=== PATIENT | male | born 1950 | race Caucasian/White ===

== ENCOUNTER 2021-04-19 10:44 | Outpatient (CLI) | payer MEDICARE, SELFPAY ==
--- NOTE | ~2021-04-19 | US_ITS ---
EXAMINATION: US aorta [facility] DATE: 04/19/2021 11:31 INDICATION: Cardiovascular risk factors of hypercholesterolemia, hypertension and prior smoking. TECHNIQUE: Grayscale, color Doppler, and pulsed Doppler images of the aorta and common iliac arteries were obtained. COMPARISON: None. FINDINGS: The proximal aorta measures 2.4 cm. The mid aorta measures 1.7 cm. The distal aorta measures 1.7 cm. The right common iliac artery measures 1.2 cm. The left common iliac artery measures 1.2 cm. IMPRESSION: 1. Normal caliber abdominal aorta. Reviewed, dictated and finalized at location [facility]
== END 2021-04-19 10:45 | disposition home or self-care (01) ==
PROVIDERS: PCP Family Medicine; Visit Provider Nurse Practitioner Family
DX: Z87.891 Personal history of nicotine dependence (principal)
CPT/HCPCS: 76706

== ENCOUNTER 2024-12-23 02:01 | Day surgery (SDC) | payer MEDICARE, SELFPAY ==
[2024-12-08 12:47] VITALS: BMI 28.0
--- OUTSIDE RECORDS SUMMARY | 2024-12-23 02:03 | XMS_ITS | Clinical Summary ---
Author Organization [facility] Address [address] [place], [place] [id number] Care Team Providers Care Mobile Engineer Name Role Phone Gisel Boyle MD Primary Care Provider Allergies No known active allergies Medications No known medications Active Problems No known active problems Social History Tobacco Use Types Packs/Day Years Used Date Smoking Tobacco: Never Assessed Personal Safety Answer Date Recorded Getting School Help Needed Not on file 04/04 Sex and Gender Information Value Date Recorded Sex Assigned at Not on file Legal Sex Male 9:43 AM [employer]ING [employer] Gender Identity Not on file Sexual Orientation Not on file Plan of Treatment Not on file Insurance [facility] Address: [facility] [address] [place] [address] Care Teams Mobile Engineer Relationship Specialty Start Date End Date Gisel Boyle MD PCP - General Family Medicine 01/22/19
[2024-12-23 09:11] VITALS: BP 150/71; PULSE 68; RESP 18; TEMP 36.6; O2SAT 100
[2024-12-23] MEDS: LACTATED RINGERS 1,000 ML 150 ML IV CONT (09:20)
--- NOTE | 2024-12-23 09:52 | WPDANESEPPF ---
Anes - Initial Pre Proc Eval Procedure: Operation Date: 12/23/24 10:30 Proposed Procedures p Screening Colonoscopy - Ronak Sung MD Date/Time: 12/23/24 09:52 Surgeon: Ronak Sung MD Pre Op Diagnosis: Family history of colon polyps, unspecified Patient Data Age: 74 Gender: M Height: 1.75 m Weight: 80.6 kg Last Vital Signs Temp 97.8 F 12/23/24 09:11 Pulse 68 12/23/24 09:11 Resp 18 12/23/24 09:11 BP 150/71 H 12/23/24 09:11 Pulse Ox 100 12/23/24 09:11 O2 Del Method Room Air 12/23/24 09:11 Allergies Allergy/AdvReac Type Severity Reaction Status Date / Time No Known Allergies Allergy Unknown Verified 12/23/24 09:09 Home Medications ?Medication ?Instructions ?Recorded ?Confirmed ?Type ferrous sulfate 27 mg iron tablet 27 mg PO DAILY 03/12/19 12/23/24 History (High Potency Iron) multivit with minerals-iron 18 1 tablet PO DAILY 03/12/19 12/23/24 History mg-folic ac 400 mcg-vit K 25 mcg tablet (Adults Multivitamin) fluticasone propionate 50 1 spray intranasal DAILY #47.4 mL 04/10/19 12/23/24 Rx mcg/actuation nasal spray,suspension tamsulosin 0.4 mg capsule 0.4 mg PO DAILY #90 caps 07/07/24 12/23/24 Rx trazodone 50 mg tablet See Rx Instructions .Route 07/17/24 12/23/24 Rx .COMPLEX #90 tabs fenofibrate 160 mg tablet 160 mg PO DAILY #90 tabs 10/10/24 12/23/24 Rx amlodipine 5 mg tablet 5 mg PO DAILY #90 tabs 10/29/24 12/23/24 Rx lisinopril 40 mg tablet 40 mg PO DAILY #90 tabs 10/30/24 12/23/24 Rx rosuvastatin 10 mg tablet 10 mg PO DAILY #90 tabs 10/30/24 12/23/24 Rx triamterene 37.5 See Rx Instructions .Route 10/30/24 12/23/24 Rx mg-hydrochlorothiazide 25 mg .COMPLEX #90 caps capsule potassium chloride 10 mEq 10 meq PO DAILY #90 caps 12/22/24 12/23/24 Rx capsule,extended release Patient hx anesthesia problems: none Family hx anesthesia problems: none Results Review: All pre-operative results and documents have been reviewed as part of the pre-operative evaluation. [facility] Past Medical History Medical History Prediabetes Former smoker Meniere's disease Hyperlipidemia Insomnia Onychomycosis of great toe Erectile dysfunction BPH (benign prostatic hyperplasia) History of basal cell cancer Inner ear hearing loss Hypertension Hyperlipidemia Surgical History Surgical History Uses cochlear implant left ear Family History Family History Mother Cerebrovascular accident Father Cancer Social History Social History Social History: , 3 children, 7 grandchildren. He is retired from , he worked in the [employer]. Smoking packs per day: 0.5 Smoking cigarettes per day: 10.0 Years smoked: 5 Smoking pack-years: 2.50 Smoking status: Former smoker Tobacco type: cigarettes Second hand tobacco smoke exposure: No Alcohol intake: current Substance use: never Substance use type: does not use Lack of Transportation: No Lack of Food: Never True Current Housing: I Have Housing Concerned About Future Housing: No Difficulty Paying Gas/Electric Bills: No Difficulty Paying for Meds: No Currently Unemployed: No Education: Bachelor's Degree Difficulty w/ Childcare or Family Care: No Living arrangements: with family Occupation/Education: retired Gender identity (if verbalized by the patient): Male Sexual Orientation (if Verbalized by the Patient): Straight or Heterosexual Spiritual care concerns: No Agree to blood products: Yes Anes - Eval Final PreProcedure Day of Procedure 12/23/24 09:52 Patient weight: overweight Lungs: normal air movement Airway: Mallampati scale class II Neurological: alert and oriented Last oral intake: >/= 8 hours ASA classification: II Emergent: no Anesthetic plan: proceed Anesthesia type and monitoring: general GIVS and standard monitoring Results Review: All pre-operative results and documents have been reviewed as part of the pre-operative evaluation. HTN, hyperlipidemia, cochlear implant on L. Active without cp or sob. Informed Consent: The patient's anesthetic plan and its attendant risks and benefits were discussed with the patient/family/POA. Questions were solicited and answers provided to the satisfaction of the patient/family/POA.
--- NOTE | 2024-12-23 10:06 | PM.IMHP ---
H&P: HPI History of Present Illness Date/Time: 12/23/24 10:06 Chief Complaint: Family history of colon polyps Narrative: This patient has family history of colorectal polyps.. His son had polyps when he was 28. The patient's last colonoscopy was in 2019, finding no polyps. Review of Systems Review of Systems: All systems reviewed & are unremarkable except as noted in HPI and below PMFSH Past Medical History Medical History Prediabetes Former smoker Meniere's disease Hyperlipidemia Insomnia Onychomycosis of great toe Erectile dysfunction BPH (benign prostatic hyperplasia) History of basal cell cancer Inner ear hearing loss Hypertension Hyperlipidemia Surgical History Surgical History Uses cochlear implant left ear Family History Family History Mother Cerebrovascular accident Father Cancer Social History Social History Social History: , 3 children, 7 grandchildren. He is retired from [employer], he worked in the [employer]. Smoking packs per day: 0.5 Smoking cigarettes per day: 10.0 Years smoked: 5 Smoking pack-years: 2.50 Smoking status: Former smoker Tobacco type: cigarettes Second hand tobacco smoke exposure: No Alcohol intake: current Substance use: never Substance use type: does not use Lack of Transportation: No Lack of Food: Never True Current Housing: I Have Housing Concerned About Future Housing: No Difficulty Paying Gas/Electric Bills: No Difficulty Paying for Meds: No Currently Unemployed: No Education: Bachelor's Degree Difficulty w/ Childcare or Family Care: No Living arrangements: with family Occupation/Education: retired Gender identity (if verbalized by the patient): Male Sexual Orientation (if Verbalized by the Patient): Straight or Heterosexual Spiritual care concerns: No Agree to blood products: Yes Meds Home Medications and Allergies Home Medications ?Medication ?Instructions ?Recorded ?Confirmed ?Type ferrous sulfate 27 mg iron tablet 27 mg PO DAILY 03/12/19 12/23/24 History (High Potency Iron) multivit with minerals-iron 18 1 tablet PO DAILY 03/12/19 12/23/24 History mg-folic ac 400 mcg-vit K 25 mcg tablet (Adults Multivitamin) fluticasone propionate 50 1 spray intranasal DAILY #47.4 mL 04/10/19 12/23/24 Rx mcg/actuation nasal spray,suspension tamsulosin 0.4 mg capsule 0.4 mg PO DAILY #90 caps 07/07/24 12/23/24 Rx trazodone 50 mg tablet See Rx Instructions .Route 07/17/24 12/23/24 Rx .COMPLEX #90 tabs fenofibrate 160 mg tablet 160 mg PO DAILY #90 tabs 10/10/24 12/23/24 Rx amlodipine 5 mg tablet 5 mg PO DAILY #90 tabs 10/29/24 12/23/24 Rx lisinopril 40 mg tablet 40 mg PO DAILY #90 tabs 10/30/24 12/23/24 Rx rosuvastatin 10 mg tablet 10 mg PO DAILY #90 tabs 10/30/24 12/23/24 Rx triamterene 37.5 See Rx Instructions .Route 10/30/24 12/23/24 Rx mg-hydrochlorothiazide 25 mg .COMPLEX #90 caps capsule potassium chloride 10 mEq 10 meq PO DAILY #90 caps 12/22/24 12/23/24 Rx capsule,extended release Allergies Allergy/AdvReac Type Severity Reaction Status Date / Time No Known Allergies Allergy Unknown Verified 12/23/24 09:09 Vital Signs Vital Signs - 24 hr 12/23/24 09:11 Temperature 97.8 F Pulse Rate 68 Respiratory Rate 18 Blood Pressure 150/71 H Pulse Oximetry 100 Oxygen Delivery Room Air Exam Const: General: cooperative and healthy appearing Resp: Effort & Inspection: normal respiratory effort and able to speak in complete sentences Auscultation: clear to auscultation bilaterally Cardio: Rate: regular rate Rhythm: regular rhythm GI: Inspection: normal to inspection GI Palp: No No hepatosplenomegaly present Auscultation: normal bowel sounds Rectal Exam: deferred Skin: General skin exam: normal color Psych: Appearance: grossly normal Mental Status: mental status grossly normal Assessment and Plan Assessment and plan (1) Family history of polyps in the colon: Code(s): Z83.719 - Family history of colon polyps, unspecified Status: Acute Assessment and Plan: The patient is deemed a good candidate for the procedure. Consent signed. Will proceed.
[2024-12-23] MEDS: SIMETHICONE ORAL SUSPENSION 20 MG/0.3 ML 30 ML BOTTLE 0.6 ML IRRIGATION (10:18)
--- NOTE | 2024-12-23 10:41 | S_PTH ---
PATIENT: Cj Orr LOC: [facility] U#:[id number] AGE/SX: 74/M ROOM: RE12/23/[address]: Ronak Sung MD : 1950 BED: DIS: 12/23/2024 SPEC #: [id number] RECD: 12/23/24 11:52 STATUS: ROBIN REMariana #: [id number] SCOUT: 12/23/24 10:[address]: Ronak Sung DEPT: [facility] Surgical RECD BY: Leonides Matson ENTERED: 12/23/24 11:53 SP TYPE: Surgical OTHR DR: Karan Mathews MD Tissues: A - Colon Polypectomy B - Colon Polypectomy C - Colon Polypectomy Procedures: Hematoxylin and Eosin Stain Gross and Microscopic Level 4
[2024-12-23 10:44] VITALS: BP 126/73; PULSE 57; RESP 14; O2SAT 100
[2024-12-23 10:54] VITALS: BP 122/72; PULSE 58; RESP 15; O2SAT 100
[2024-12-23 11:04] VITALS: BP 128/70; PULSE 57; RESP 20; O2SAT 100
== END 2024-12-23 11:11 | disposition home or self-care (01) ==
PROVIDERS: PCP Family Medicine; Referring Provider Nurse Practitioner Family; Visit Provider Internal Medicine Gastroenterology
PROC: 0DJD8ZZ Inspection of Lower Intestinal Tract, Via Natural or Artificial Opening Endoscopic (ICD-10-PCS; CPT 45378; principal; 2024-12-23 10:30)
DX: Z12.11 Encounter for screening for malignant neoplasm of colon (principal); D12.0 Benign neoplasm of cecum; D12.2 Benign neoplasm of ascending colon; D12.3 Benign neoplasm of transverse colon; E78.5 Hyperlipidemia, unspecified; I10 Essential (primary) hypertension; R73.03 Prediabetes; G47.00 Insomnia, unspecified; N52.9 Male erectile dysfunction, unspecified; N40.0 Benign prostatic hyperplasia without lower urinary tract symptoms; H81.02 Meniere's disease, left ear; Z98.890 Other specified postprocedural states; Z96.21 Cochlear implant status; Z87.891 Personal history of nicotine dependence; Z83.719 Family history of colon polyps, unspecified; Z80.9 Family history of malignant neoplasm, unspecified
CPT/HCPCS: 45385; 88305; J2003; J2704; J7120